=== PATIENT | female | born 1990 | race Caucasian/White ===

== ENCOUNTER 2025-08-18 21:05 | Emergency (ER) | payer BC, SELFPAY ==
[2025-08-18 21:07] VITALS: BP 155/94
[2025-08-18 21:34] VITALS: BMI 24.0
[2025-08-18 21:38] VITALS: BP 103/55
[2025-08-18 21:53] LABS: Hematocrit 40.6 % (37.0-47.0); Hemoglobin 13.5 g/dL (12.0-16.0); Mean Corp Hgb Conc. 33.3 g/dL (33.0-37.0); Mean Corpuscular Volume 83.5 fL (81.0-99.0); Nucleated Red Blood Cells % 0 %; Platelet Count 254 10^3/uL (130-400); Red Cell Dist. Width 12.2 % (11.5-14.5)
[2025-08-18 22:01] VITALS: BP 95/60
[2025-08-18 22:54] LABS: HCG, Serum Qualitative Screen Negative
[2025-08-18 22:56] LABS: ALT (SGPT) 34 U/L (0-35); AST (SGOT) 26 U/L (14-36); Albumin 4.2 g/dl (3.5-5.0); Alkaline Phosphatase 66 U/L (38-126); Blood Urea Nitrogen 11 mg/dl (7-17); Calcium 9.1 mg/dl (8.4-10.2); Carbon Dioxide 22 mmol/L (22-30); Chloride 111 mmol/L (98-107); Estimated Creatinine Clearance 115 ml/min; Glucose 95 mg/dl (70-99); Potassium 4.0 mmol/L (3.5-5.1); Sodium 138 mmol/L (135-145); Total Protein 6.9 g/dl (6.3-8.2); eGFR > 60.00
[2025-08-18 23:05] LABS: Acetaminophen < 10 ug/ml (10-30)
[2025-08-18 23:15] LABS: Salicylate < 1.0 mg/dl (2.0-20.0)
[2025-08-18] MEDS: NSS 1000 IV (23:59)
[2025-08-19] MEDS: BENADRYL 25 MG IV
[2025-08-19] MEDS: COMPAZINE 5 MG IV
--- NOTE | 2025-08-19 00:23 | ED.GENMED ---
History of Present Illness
General
Chief Complaint: Change in Mental Status
Source: patient and family (Mother and significant other at bedside)
Exam Limitations: none
Time Seen by Provider: 08/18/25 22:57
Nursing documentation reviewed up to this point in time: agreed with
History of Present Illness
History of Present Illness:
HISTORY OF PRESENT ILLNESS
The patient is a 35-year-old female who presents with a severe migraine accompanied by confusion and episodes of gibberish speech. The symptoms began around 11 PM the previous night and persisted intermittently. The patient reports a long history of
migraines, lasting over seven years, but describes this episode as atypical due to the disorientation and inability to speak coherently.
The migraines have become progressively worse over the past three weeks, with increasing frequency and severity. The patient experiences ocular disturbances daily, describing visual effects neymar to 'looking through blinds.' She has not previously
been formally diagnosed with migraines until consultation via telemedicine three weeks ago, at which time a prescription of naproxen 500 mg was provided. Despite medication, the current migraine has not resolved.
Accompanying symptoms include nausea, heightened sensitivity to stimuli, generalized body pain, and aches particularly impacting the neck, jaw, eyes, and back. The pain is predominantly in the occipital region, often radiating more to the left side.
She denies any recent alcohol consumption but admits to a history of migraine-associated symptoms such as nausea and sensitivity.
The patient also reports a chronic smokers cough and intermittent nasal congestion persisting for weeks, with exacerbation during the last few days. Emotional distress and irritability have heightened recently, attributing to her ongoing discomfort
and speech disturbances.
She adamantly denies alcohol or drug use.
She does have history of generalized anxiety disorder, history of depression, ADD. Chronically maintained on lorazepam 1 mg 3 times daily, also maintained on Adderall and buprenorphine. There has been no recent change in medications.
No recent falls nor injuries but she does admit to longstanding history of being somewhat 'clumsy' with prior trip and falls down steps.
Last menstrual period 3-1/2 weeks ago. Normal and on time. Denies risk of .
Past History
Past History
ED Past Medical History: Psychiatric (Depression. Anxiety, ADHD, prior history of self-injury/cutting)
ED Past Surgical History: Appendectomy
Social History
Tobacco: Smoker
Alcohol: None
Drug: Former user
Personal:
Living: with family
Employment: Not employed
Family History
Family History: Other (Noncontributory)
Phy Exam
Physical Exam
Physical Exam:
GENERAL: 35-year-old woman appears her stated age, awake and alert, oriented x 3, mildly anxious but easily communicative. Normal speech pattern. No word searching nor aphasia noted. Her boyfriend and mother are accompanying.
EYE: pupils equal and reactive. Extraocular muscles intact, anicteric
NECK: Supple, nontender, no meningismus, no significant adenopathy.
ENT: posterior pharynx is clear, oral mucosa is moist. TM clear b/l, nares patent.
CARDIAC: Regular rate and rhythm. no murmur. No rub.
LUNGS: Clear breath sounds bilaterally, no acute respiratory distress, no wheezes/rales/rhonchi
ABDOMEN: Soft, nondistended, without focal tenderness, no r/g, no cvat. normoactive BS.
NEUROLOGICAL: Alert and oriented x3, no focal neuro deficits. Gait is pena and steady.
SKIN: Warm and dry, normal color, skin intact. No rash.
MUSCULOSKELETAL: No C/C/E. peripheral pulses are full and equal b/l. No palpable tenderness.
PSYCH: Mildly anxious.
Course
Orders/Labs/Results
Orders:
Orders
08/18/25 21:13
Test Result ONCE
08/18/25 21:43
Complete Blood Count/With Diff Urgent
08/18/25 22:23
Acetaminophen Urgent
Alcohol Urgent
Comprehensive Metabolic Panel Urgent
HCG, Serum Qualitative Screen Urgent
Salicylate Urgent
08/18/25 22:51
Add On- LAB Urgent
Tests Added?: ETOH level, salicylate, acetaminophen
08/18/25 23:11
CT Head W/o Iv Contrast Urgent
Comment:
Reason For Exam: headache, confusion
08/18/25 23:49
0.9% Sodium Chloride 1000 ml [Nss] 1,000 ml IV BOLUS
Diphenhydramine [Benadryl] 25 mg IV NOW STA
Prochlorperazine [Compazine] 5 mg IV NOW STA
08/18/25 23:57
Fentanyl, Urine Urgent
Urine Drug Abuse Screen Urgent
Date Specimen was Collected: 08/18/25
Time Specimen was Collected: 23:56
Abnormal Lab Results
08/18/25 08/18/25
22:23 23:57
Chloride 111 H mmol/L
(98-107)
Creatinine 0.5 L mg/dL
(0.6-1.0)
Salicylates < 1.0 L mg/dl
(2.0-20.0)
Ur Buprenorphine Positive H
(Negative)
Acetaminophen < 10 L ug/ml
(10-30)
U Benzodiazepines Scrn Positive H
(Negative)
08/18/25 21:43
08/18/25 22:23
Vital Signs
Initial and Last Documented VS:
Initial Vital Signs
Temp Pulse Resp BP Pulse Ox
98.7 F 144 18 155/94 97
08/18/25 21:07 08/18/25 21:07 08/18/25 21:07 08/18/25 21:07 08/18/25 21:07
Last Documented Vital Signs
Temp Pulse Resp BP Pulse Ox
98.7 F 77 10 95/60 94
08/18/25 21:07 08/18/25 22:45 08/18/25 22:45 08/18/25 22:01 08/19/25 00:39
MDM/Problems Addressed
Differential Diagnosis Includes:
DIFFERENTIAL DIAGNOSIS
The Differential Diagnosis includes, in no particular order and is not limited to:
1. Complex migraine
2. Transient ischemic attack
3. Stroke
4. Epileptic seizure with postictal confusion
5. Subarachnoid hemorrhage
6. Meningitis or encephalitis
7. Medication-induced headache or side effect
8. Brain tumor or mass
9. Hypertensive crisis
10. Temporal arteritis
11. Conversion reaction
MDM/Problems Addressed:
PROBLEM LIST
Acute: Severe migraine with confusion and speech disturbance.
Chronic: Chronic headaches, generalized anxiety disorder
Since arrival to the ED patient has had no difficulty with speech, no aphasia, no focal neurodeficits.
She has longstanding history of headaches, progressive and worsening over the past few weeks with onset of neurologic symptoms prompting need for neuroimaging and will check CT of the head.
If CT is unremarkable would consider trial of IV Compazine for migraine headache.
Labs thus far unremarkable. She is afebrile, normotensive. Nothing in history to suggest URI nor febrile illness. No neck pain nor meningismus. Nothing to suggest meningitis.
Chronically maintained on buprenorphine, lorazepam and Adderall. Adamantly denies alcohol nor recreational drug use. Will check UDS as well as EtOH for completeness sake. However, no evidence of toxidrome on exam.
Chronic conditions affecting care: Psychiatric illness
*Radiology
Radiology exam reviewed: radiology read reviewed
*Pulse Oximetry
SaO2: 94
Oxygen Mode of Delivery: Room air
Patient hypoxic: no
*Critical Care Note
Total Time (30-74mins, 75-104mins- exclusive of procedures): Not Applicable
Update Note
Update Note:
23:45
CT of the head is unremarkable.
I suspect migraine headache, perhaps complex migraine syndrome. She remains bright and alert, no focal neurodeficits. No confusion. No aphasia. Speech remains clear, normal speech pattern.
Will trial a small IV dose of Compazine and Benadryl as well as IV fluids.
She does have history of anxiety and we discussed the potential side effects of Compazine being restlessness.
Will continue to observe.
00:20
Patient reports relief of headache after an IV dose of Compazine/Benadryl. She does however admit to moderate restlessness, feeling anxious and is requesting to go home.
I suspect the restlessness is adverse effect to Compazine and recommend we trial an additional dose of Benadryl but patient believes she can manage her symptoms at home. She does have history of generalized anxiety disorder, maintained on lorazepam
1 mg 3 times daily. She remains afebrile. No focal neurodeficits. No confusion nor aphasia.
Vital signs remain within normal limits.
I suspect side effects of Compazine and should jaun within the next hour or 2.
Discussed importance of staying well-hydrated on a daily basis.
Recommend prompt follow-up with PCP and patient will be referred to neurology as well.
Return precautions discussed.
ED Attending Note
-
Portions of this chart may have been created with voice recognition software.� Occasional wrong word or��sound alike� substitutions may have occurred due to the inherent limitations of voice recognition software.
Discharge Plan
Departure
Patient Disposition: Home (Routine Discharge)
Date of Disposition: 08/19/25
Time of Disposition: 00:25
Patient with high blood pressure during this ER visit?: No
Condition: Good
Discharge Problem:
complex migraine headache
Instructions: Migraine in adults, Keeping track of your headaches
Prescriptions:
No Action
clonazepam 0.5 MG tablet
0.5 mg PO BID
escitalopram oxalate 10 MG tablet
10 mg PO DAILY
Referrals:
Harvey Saravia MD [Family Provider, Family Practice] - Call in 1-3 days for appt
Fidel Cordon MD [Active, Neurology] - Call in 1-3 days for appt
Interventions
Interventions:
*Risk Screen - Suicide Last Done: 08/18/25 21:07
*General Assessment Last Done: 08/18/25 21:07
*Neglect/Abuse Screening Last Done: 08/19/25 00:29
*ED- Fall Risk Assessment Last Done: 08/18/25 21:07
*ED COVID-19 Vaccine History Last Done: 08/18/25 21:07
*ED Influenza Vaccine History Last Done: 08/18/25 21:07
*Nursing Disposition Last Done: 08/19/25 00:40
ED- Pulmonary Assessment Last Done: 08/19/25 00:31
ED-Psychological Assessment Last Done: 08/19/25 00:31
ED- Neurological Assessment Last Done: 08/18/25 21:44
ED- Cardiac Assessment Last Done: 08/18/25 21:44
ED Swallowing Screen Last Done: 08/18/25 21:44
Discharge Date and Time
Discharge Date/Time: 08/19/25 00:43
Print Language: ARABIC
== END 2025-08-19 00:43 | disposition home or self-care (01) ==
LOC: EMR 21:05
PROVIDERS: Emergency Medicine; EMERGENCY PHYSICIAN Emergency Medicine; FAMILY PHYSICIAN Family Medicine
DX: G43.909 Migraine, unspecified, not intractable, without status migrainosus (principal); F41.9 Anxiety disorder, unspecified; F90.9 Attention-deficit hyperactivity disorder, unspecified type; F17.200 Nicotine dependence, unspecified, uncomplicated; Z79.899 Other long term (current) drug therapy; Z90.49 Acquired absence of other specified parts of digestive tract; Z91.52 Personal history of nonsuicidal self-harm
CPT/HCPCS: 99284; 96374; 96375; 70450; 80053; 80143; 80179; 80306; 80307; 82077; 84703; 85025